=== PATIENT | female | born 1975 | race Caucasian/White ===

== ENCOUNTER 2016-03-22 08:03 | Emergency (ER) | payer SELFPAY ==
[2016-03-22 08:16] VITALS: TEMP 97.4; BMI 36.1
[2016-03-22] MEDS ORDERED: OXYCODONE HCL 5 MG TABLET PO ONE (08:36)
--- NOTE | 2016-03-22 08:39 | EDPRACDOC ---
- General Information Chief Complaint: Hand Pain Stated Complaint: RT HAND PAIN Time Seen by Provider: 03/22/16 08:32 Information Source: Patient Mode of Arrival: Car Home Medications: Home Medications Metoprolol Tartrate [Lopressor] 50 mg PO BID 10/27/15 Clindamycin [Cleocin] 300 mg PO TID 12/28/15 Fluticasone Propionate [Flonase Nasal [place]] 2 spray SILVERIO DAILY #1 each 12/28/15 Guaifenesin [Humabid, Mucinex] 600 mg PO BID 12/28/15 Prednisone [Sterapred Ds] 10 mg PO DIR #21 pack 12/28/15 Promethazine Dextromethorphan [Phenergan DM] 5 ml PO Q4H PRN #120 ml 12/28/15 Oxycodone HCl/Acetaminophen [Percocet 5-325 mg Tablet] 1 each PO Q4 #20 tablet 03/22/16 Allergies/Adverse Reactions: Allergies Allergy/AdvReac Type Severity Reaction Status Date / Time acetaminophen [From Fioricet] Allergy BP DROPS Verified 12/28/15 08:25 butalbital [From Fioricet] Allergy BP DROPS Verified 12/28/15 08:25 caffeine [From Fioricet] Allergy BP DROPS Verified 12/28/15 08:25 morphine Allergy See Verified 12/28/15 08:25 Comments Penicillins Allergy HIVES Verified 12/28/15 08:25 - History of Present Illness Onset: 1 week HPI: PATIENT WAS PULLING HEAVY OBJECT AND PUSHED THUMB FORCEFULLY BACKWARD POSTERIOR TO HAND.. HEARD A POP AND HAS HAD SWELLING AT METACARPAL PHALANGEAL JOINT SINCE THEN. Location: Reports: Right, Thumb Dominant Hand: Right Mechanism: Reports: Blunt Trauma Tetanus Up To Date?: Yes ED Past Medical History - History Reviewed Yes Nurses notes reviewed and agree except as marked Travel Outside of [place] in the Last 3 Months?: No - Patient Medical History Cardiac History: Reports: Hypertension Psychological History: Reports: Depression - Social Medical History Smoking Status: Never smoker ETOH: None Substance Abuse: None Lives With: Family Lives In: Home EDM Review of Systems - Review of Systems ROS Negative Except as Marked: Yes All systems reviewed and were negative except as marked Constitutional: No Symptoms Reported. negative: Fever, Chills, Weakness, Fatigue, Loss of Appetite Eyes: No Symptoms Reported. negative: Redness, Blurred Vision, Double Vision, Discharge, Pain, Light Sensitive, Photophobia Ears: No Symptoms Reported. negative: Pain, Hearing Loss, Drainage, Ear Pulling Throat: No Symptoms Reported. negative: Pain, Swelling Nose: No Symptoms Reported. negative: Congestion, Bleeding, Discharge, Injection, Swelling, Deformity, Ecchymosis, Tender, Abrasion, Laceration Mouth: No Symptoms Reported. negative: Pain, Drooling Respiratory: No Symptoms Reported. negative: Cough, Brassy Cough, Barky Cough, Shortness of Breath, Wheezing, Hemoptysis Cardiovascular: No Symptoms Reported. negative: Chest Pain, Palpitations, Syncope, Edema, Orthopnea, PND, Skin Mottling, Cyanosis Gastrointestinal: No Symptoms Reported. negative: Pain, Constipation, Nausea, Vomiting, Diarrhea, Melena, Formula Intolerance Genitourinary: No Symptoms Reported. negative: Dysuria, Hematuria, Frequency, Discharge, Bleeding, Testicular Pain, Neurological: No Symptoms Reported. negative: Headache, Dizziness, Seizure, Numbness, Weakness, Speech Difficulty, Gait Difficulty Musculoskeletal: Hand (RIGHT THUMB). negative: Arm, Ankle, Back, Chestwall, Elbow, Forearm, Femur, Foot, Hip, Knee, Leg, Neck, Pelvis, Ribs, Shoulder, Wrist Integumentary: No Symptoms Reported. negative: Itching, Rash, Bruising, Wound Allergic/Immunologic: No Symptoms Reported. negative: Hives, Itching Hematologic: No Symptoms Reported. negative: Lymphadenopathy, Easy Bruising, Easy Bleeding Endocrine: No Symptoms Reported. negative: Weight Gain, Weight Loss Psychiatric: No Symptoms Reported. negative: Anxiety, Depression, Hallucinations, Insomnia, Suicidal - Physical Exam Constitutional: Alert (Awake) Oriented to: Time, Person, Place Last recorded Vital Signs: Last Vital Signs Temp 97.4 F L 03/22/16 08:13 Pulse 100 03/22/16 08:13 Resp 20 03/22/16 08:13 BP 190/91 H 03/22/16 08:13 Pulse Ox 100 03/22/16 08:13 Oxygen Pulse Oxygen Saturation 100 O2 Device Room Air Oxygen Flow Rate Fraction of Inspired Oxygen ( FIO2) - HEENT Head: Normal ( normocephalic) Eye Exam: Normal (PERRL, EOMI, Sclera white) Oropharynx: Normal (Pharynx:Moist without exudate,Gums-no swelling) Tympanic Membrane: Normal ENT EAC: Normal TMJ: Normal Nose: No Symptoms Reported (septum midline) Neck: Normal (FROM, trachea at midline) - Respiratory/Cardiovascular Respiratory: Normal - CTA (BBS clear to auscultation without adventitious sounds ) Cardiovascular: Normal (RRR without murmur, gallop or rub) - GI Auscultation: Normal (NABS) Palpation: Normal (Soft,No rebound or guarding, non distended) Tenderness: Non tender Villa's Sign: Negative - Musculoskeletal Back: Normal (Non-Tender) Extremities: Other (THUMB TENDERNESS OVER LATERAL METACARPAL/PHALANGEAL JOINT) - Integumentary Skin: Normal, Warm, Dry Lymphatics: Normal (no adenopathy) - Neurologic Memory Impaired: Normal Motor Function: Normal (Normal tone, Pulses 2+ No cyanosis or edema, FROM) Cranial Nerve: Normal (CN II-X11 intact sensation, strength 5/5) Cerebellar: Normal Mood Description: Normal Perception: Normal ED Procedures - Splinting 1st splint Location: RIGHT HAND Hand-Made Type: fiberglass Splint: thumb spica Pre-Proc Neuro Vasc Exam: normal Post-Proc Neuro Vasc Exam: normal Other Devices: Sling - Fracture/Dislocation Reduction Informed of risks, benefits and alternatives described.: Yes Informed Consent Signed: Verbal Indication: Dislocation Attempted reduction was performed: Yes Reduction Attempts: 1 Sedation performed under my direct supervision See flowsheet: No Joint Reduction Site: Other (RIGHT THUMB) Pre-Procedure NV Exam: Yes Shoulder Reduction was performed by: Traction-Counteraction Post Reduction radiographs showed: Joint Reduced Decision Time to Discharge: 10:16 - Departure Yes I personally saw and evaluated the patient. Disposition: Home Condition: Good Final Diagnosis: Dislocation of right thumb Qualifiers: Encounter type: initial encounter Qualified Code(s): S63.104A - Unspecified dislocation of right thumb, initial encounter Instructions: RICE: Routine Care for Injuries Education/Counseling Given To: Patient Education/Counseling Given Regarding: Diagnosis, Treatment, Prognosis, Follow Up Referrals: None,No Provider [Primary Care Provider] - One Week Pedro Riley MD [Staff Physician] - One Week Prescriptions: Oxycodone HCl/Acetaminophen [Percocet 5-325 mg Tablet] 1 each PO Q4 #20 tablet - Physician Consulted Orthopedics Time Called: 10:22 Provider Called: Pedro Riley (GET MRI OF HAND) Time Customer Project Manager Returned Call: 10:23
--- NOTE | 2016-03-22 09:00 | DIRPT ---
CLINICAL DATA: Pain following injury in thumb region while pulling heavy object EXAM: RIGHT HAND - COMPLETE 3+ VIEW COMPARISON: None. FINDINGS: Frontal, oblique, and lateral views were obtained. There is subluxation and possibly mendoza dislocation at the first carpal -metacarpal joint with the first metacarpal overlapping the trapezium bone on the oblique and lateral views and the first metacarpal mildly laterally displaced compared to the trapezium on the frontal view. No fracture. No appreciable joint space narrowing. No erosive change. IMPRESSION: Subluxation and possibly mendoza dislocation at the first carpal -metacarpal joint. No fracture. Elsewhere no fracture or dislocation. No appreciable arthropathic change. Electronically Signed By: Remi Resendez III, M.D. On: 03/22/2016 08:57
--- NOTE | 2016-03-22 10:09 | DIRPT ---
CLINICAL DATA: Postreduction EXAM: RIGHT HAND - COMPLETE 3+ VIEW COMPARISON: Earlier today FINDINGS: Located first CMC joint with mild lateral subluxation. No evidence of fracture, as permitted by overlapping splint. No new osseous finding. IMPRESSION: Located first CMC joint with mild radial subluxation. Electronically Signed By: Fredy Doran M.D. On: 03/22/2016 10:07
[2016-03-22 11:53] VITALS: BP 179/93; PULSE 92
--- NOTE | 2016-03-22 12:18 | DIRPT ---
CLINICAL DATA: Right thumb injury. Possible subluxation due to picking up a heavy bucket. Initial encounter. EXAM: MRI OF THE RIGHT HAND WITHOUT CONTRAST TECHNIQUE: Multiplanar, multisequence MR imaging was performed. No intravenous contrast was administered. COMPARISON: Plain films of same day. FINDINGS: The first CMC joint is located. Collateral ligaments are intact. There is no marrow edema about the joint to suggest contusion or fracture. Very mild soft tissue edema is seen about the joint. The patient has mild first CMC degenerative change with tiny subchondral cysts noted about the joint. All imaged ligaments and tendons are intact. IMPRESSION: Negative for ligament tear. Minimal soft tissue edema about the joint may be secondary to prior subluxation. Mild first CMC osteoarthritis. Electronically Signed By: Erick Soria M.D. On: 03/22/2016 12:15
== END 2016-03-22 11:50 | disposition home or self-care (01) ==
LOC: ED 08:03
DX: S63.044A Dislocation of carpometacarpal joint of right thumb, initial encounter (principal); X50.0XXA Overexertion from strenuous movement or load, initial encounter; I10 Essential (primary) hypertension; F32.9 Major depressive disorder, single episode, unspecified; Z79.899 Other long term (current) drug therapy
CPT/HCPCS: 26641; 26770; 99283; J3490

== ENCOUNTER 2016-03-26 15:38 | Emergency (ER) | payer SELFPAY ==
[2016-03-26 15:39] VITALS: BMI 36.1
[2016-03-26 15:48] VITALS: TEMP 98.2
[2016-03-26 17:19] VITALS: BP 170/99; PULSE 132
--- NOTE | 2016-03-26 17:21 | EDPRACDOC ---
- General Information Chief Complaint: Hand Pain Stated Complaint: THUMB PAIN Time Seen by Provider: 03/26/16 17:14 Information Source: Patient Mode of Arrival: Car Home Medications: Home Medications Metoprolol Tartrate [Lopressor] 50 mg PO BID 10/27/15 Clindamycin [Cleocin] 300 mg PO TID 12/28/15 Fluticasone Propionate [Flonase Nasal [place]] 2 spray SILVERIO DAILY #1 each 12/28/15 Guaifenesin [Humabid, Mucinex] 600 mg PO BID 12/28/15 Prednisone [Sterapred Ds] 10 mg PO DIR #21 pack 12/28/15 Promethazine Dextromethorphan [Phenergan DM] 5 ml PO Q4H PRN #120 ml 12/28/15 Oxycodone HCl/Acetaminophen [Percocet 5-325 mg Tablet] 1 each PO Q4 #30 tablet 03/26/16 Allergies/Adverse Reactions: Allergies Allergy/AdvReac Type Severity Reaction Status Date / Time acetaminophen [From Fioricet] Allergy BP DROPS Verified 12/28/15 08:25 butalbital [From Fioricet] Allergy BP DROPS Verified 12/28/15 08:25 caffeine [From Fioricet] Allergy BP DROPS Verified 12/28/15 08:25 morphine Allergy See Verified 12/28/15 08:25 Comments Penicillins Allergy HIVES Verified 12/28/15 08:25 - History of Present Illness Onset: 5 DAYS HPI: PT STATES CONTINUED PAIN IN RIGHT THUMB, PT HAD DISLOCATED THUMB, SEEN IN ED 5 DAYS AGO, TO SEE ORTHO ON SATURDAY, STATES OUT OF PAIN MEDS AND PAIN HAS INCREASED. Location: Reports: Right, Thumb Dominant Hand: Right Mechanism: Reports: FOOSH Circumstances: Reports: Fall Associated Signs & Symptoms: Denies: Numbness, Weakness, Hand Pain, Wrist Pain, Forearm Pain, Elbow Pain ED Past Medical History - History Reviewed Yes Nurses notes reviewed and agree except as marked - Patient Medical History Cardiac History: Reports: Hypertension Psychological History: Reports: Depression - Social Medical History Smoking Status: Never smoker EDM Review of Systems - Review of Systems Constitutional: negative: Chills, Fever Neurological: negative: Dizziness, Numbness, Weakness Musculoskeletal: Hand Integumentary: No Symptoms Reported - Physical Exam Constitutional: Alert (Awake), No apparent distress Oriented to: Time, Person, Place Last recorded Vital Signs: Last Vital Signs Temp 98.2 F 03/26/16 15:43 Pulse 112 03/26/16 15:43 Resp 18 03/26/16 15:43 BP 177/100 03/26/16 15:43 Pulse Ox 100 03/26/16 15:43 Oxygen Pulse Oxygen Saturation 100 O2 Device Room Air Oxygen Flow Rate Fraction of Inspired Oxygen ( FIO2) - HEENT Head: Normal ( normocephalic) - Integumentary Skin: Normal, Warm, Dry Lymphatics: Normal (no adenopathy) - Neurologic Memory Impaired: Normal Motor Function: Normal (Normal tone, Pulses 2+ No cyanosis or edema, FROM) Cranial Nerve: Normal (CN II-X11 intact sensation, strength 5/5) Cerebellar: Normal Mood Description: Normal Perception: Normal ED Hand Problem Physical Exam - Musculoskeletal Hand: Normal. negative: Swelling, Deformity, Limited ROM Wrist: Normal Digit: Limited ROM (IN THUMB SPICA SPLINT), Mild Tenderness. negative: Swelling , Deformity Digit Strength: Other (NOT TESTED, IN SPLINT) Nail: Normal Nailbed: Normal Soft Tissue: Normal Distal Function/Circulation: Normal, Capillary Refill. negative: Motor Deficit , Pulse Deficit, Sensory Deficit - Integumentary Skin: Normal - Differential Diagnosis Dislocation, Fracture - Additional Information OLD CHART REVIEWED, OP MRI REVIEWED, NO DISLOCATION OR LIGAMENT INJURY PLENTY OF SPACE BETWEEN SPLINT AND SKIN, NO INDICATION OF COMPARTMENT SYNDROME, SENSATION TO LIGHT TOUCH INTACT DISTALLY Decision Time to Discharge: 17:21 - Departure Disposition: Home Condition: Stable Final Diagnosis: Dislocation of right thumb Qualifiers: Encounter type: subsequent encounter Qualified Code(s): S63.104D - Unspecified dislocation of right thumb, subsequent encounter Instructions: RICE: Routine Care for Injuries Education/Counseling Given To: Patient Education/Counseling Given Regarding: Diagnosis, Treatment, Prognosis, Follow Up Referrals: Pedro Riley MD [Staff Physician] - One Week Prescriptions: Oxycodone HCl/Acetaminophen [Percocet 5-325 mg Tablet] 1 each PO Q4 #30 tablet Additional Instructions: CONTINUE TO WEAR SPLINT, ELEVATE YOUR HAND AND APPLY COLD COMPRESSES NEEDED FOR PAIN OR SWELLING, FOLLOW UP WITH ORTHOPEDICS ON SATURDAY SCHEDULED.
== END 2016-03-26 17:28 | disposition home or self-care (01) ==
LOC: EDMC 15:38
DX: S63.104D Unspecified dislocation of right thumb, subsequent encounter (principal); W19.XXXD Unspecified fall, subsequent encounter; I10 Essential (primary) hypertension; Z79.899 Other long term (current) drug therapy
CPT/HCPCS: 99282

== ENCOUNTER 2016-04-16 08:22 | Emergency (ER) | payer SELFPAY ==
[2016-04-16 08:43] VITALS: BMI 36.6
--- NOTE | 2016-04-16 09:47 | EDPRACDOC ---
- General Information Chief Complaint: Flu-Like Symptoms Stated Complaint: COUGH/ CONGESTION Time Seen by Provider: 04/16/16 09:36 Mode Of Arrival: Car Home Medications: Home Medications Metoprolol Tartrate [Lopressor] 50 mg PO BID 10/27/15 Clindamycin [Cleocin] 300 mg PO TID 12/28/15 Fluticasone Propionate [Flonase Nasal [place]] 2 spray SILVERIO DAILY #1 each 12/28/15 Guaifenesin [Humabid, Mucinex] 600 mg PO BID 12/28/15 Prednisone [Sterapred Ds] 10 mg PO DIR #21 pack 12/28/15 Promethazine Dextromethorphan [Phenergan DM] 5 ml PO Q4H PRN #120 ml 12/28/15 Oxycodone HCl/Acetaminophen [Percocet 5-325 mg Tablet] 1 each PO Q4 #30 tablet 03/26/16 Benzonatate [Tessalon [place]] 200 mg PO TID PRN #14 capsule 04/16/16 Allergies/Adverse Reactions: Allergies Allergy/AdvReac Type Severity Reaction Status Date / Time acetaminophen [From Fioricet] Allergy BP DROPS Verified 04/16/16 08:41 butalbital [From Fioricet] Allergy BP DROPS Verified 04/16/16 08:41 caffeine [From Fioricet] Allergy BP DROPS Verified 04/16/16 08:41 morphine Allergy See Verified 04/16/16 08:41 Comments Penicillins Allergy HIVES Verified 04/16/16 08:41 - History of Present Illness Onset: 3 DAYS Current Symptoms: Reports: Cough, Nasal Symptoms Shortness of Breath: Mild Cough: Reports: Non-productive Rhinorrhea: Reports: Clear Ear Symptoms: Reports: None Fever Severity/Quality: Reports: subjective Oral Intake: Normal Urinary Output: Normal Relevant History of: None. negative: Bronchiolitis ED Past Medical History - History Reviewed Yes Nurses notes reviewed and agree except as marked - Patient Medical History Cardiac History: Reports: Hypertension Psychological History: Reports: Depression Surgical History: Reports: Hysterectomy - Social Medical History Smoking Status: Never smoker ETOH: None Substance Abuse: None Lives In: Home EDM Review of Systems - Review of Systems ROS Negative Except as Marked: Yes All systems reviewed and were negative except as marked - Physical Exam Constitutional: No apparent distress, Alert Oriented to: Time, Person, Place Last recorded Vital Signs: Last Vital Signs Temp 98.4 F 04/16/16 08:41 Pulse 116 04/16/16 08:41 Resp 18 04/16/16 08:41 BP 181/89 H 04/16/16 08:41 Pulse Ox 99 04/16/16 08:41 Oxygen Pulse Oxygen Saturation 99 O2 Device Room Air Oxygen Flow Rate Fraction of Inspired Oxygen ( FIO2) - HEENT Head: Normal Eye Exam: Normal Oropharynx: Normal Tympanic Membrane: Normal ENT EAC: Normal TMJ: Normal Nose: No Symptoms Reported Neck: Normal - Respiratory/Cardiovascular Respiratory: Normal - CTA. negative: Rales, Retractions, Wheezes Cardiovascular: Normal - Musculoskeletal Extremities: Normal. negative: Pedal Edema - Integumentary Skin: Normal - Departure Disposition: Home Condition: Stable Final Diagnosis: Viral upper respiratory infection Instructions: Upper Respiratory Infection (ED) Education/Counseling Given To: Patient Education/Counseling Given Regarding: Diagnosis, Treatment, Prognosis Referrals: None,No Provider [Primary Care Provider] - One Week Prescriptions: New Benzonatate [Tessalon Per[place]] 200 mg PO TID PRN #14 capsule PRN Reason: Cough No Action Metoprolol Tartrate [Lopressor] 50 mg PO BID Clindamycin [Cleocin] 300 mg PO TID Fluticasone Propionate [Flonase Nasal [place]] 2 spray SILVERIO DAILY #1 each Prednisone [Sterapred Ds] 10 mg PO DIR #21 pack Promethazine Dextromethorphan [Phenergan DM] 5 ml PO Q4H PRN #120 ml PRN Reason: Cough Guaifenesin [Humabid, Mucinex] 600 mg PO BID Oxycodone HCl/Acetaminophen [Percocet 5-325 mg Tablet] 1 each PO Q4 #30 tablet
[2016-04-16 10:04] VITALS: BP 169/99; PULSE 101; TEMP 98.6
== END 2016-04-16 10:03 | disposition home or self-care (01) ==
LOC: ED 08:22
DX: J06.9 Acute upper respiratory infection, unspecified (principal)
CPT/HCPCS: 99283